=== PATIENT | female | born 1935 | race Caucasian/White ===

== ENCOUNTER 2016-08-01 08:39 | Emergency (ER) | payer MEDICARE ==
[2016-08-01] MEDS ORDERED: IBUPROFEN 600 MG TABLET ONE (11:14)
--- NOTE | 2016-08-01 11:22 | RAD ---
LEFT KNEE 4 VIEWS HISTORY: Left knee and hip pain, unknown injury, left knee swelling. Frontal, lateral, and bilateral oblique views of the left knee. COMPARISON: None. ALIGNMENT: Medial translation of the distal femur.. JOINT SPACES: Severe narrowing of patellofemoral compartment, minor narrowing at lateral compartment. JOINT EFFUSION: Small to moderate effusion. Infrapatellar soft tissue swelling, effacement of Hoffa's fat pad.. CALCIFICATIONS: Minor vascular in dystrophic calcifications.. FRACTURE: No displaced acute fracture. Possible loose body on frontal view. IMPRESSION: No malalignment or displaced acute fracture noted. Small to moderate effusion. 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 Suggested loose body formation.
--- NOTE | 2016-08-01 11:23 | RAD ---
LEFT HIP AND AP PELVIS SERIES HISTORY: Left knee and hip pain. Frontal view of the pelvis with frontal and crosstable lateral views of the left hip. PELVIC RING: Grossly intact. HIP ALIGNMENT: Grossly unremarkable. POSTPROCEDURAL CHANGE: Status post left hip arthroplasty. CALCIFICATIONS: Minor dystrophic calcifications. FRACTURE: No displaced acute fracture. PERIPROSTHETIC LUCENCY: No gross new periprosthetic lucency identified. IMPRESSION: Grossly stable post arthroplasty appearance of the left hip. No new fracture or periprosthetic lucency noted.
== END 2016-08-01 12:04 | disposition home or self-care (01) ==
LOC: ED 08:39
DX: M25.462 Effusion, left knee (principal); M25.562 Pain in left knee; M25.552 Pain in left hip; I10 Essential (primary) hypertension; R01.1 Cardiac murmur, unspecified; Z95.0 Presence of cardiac pacemaker
CPT/HCPCS: 73502; 73564; 99283 ×2; A9270